=== PATIENT | female | born 1965 | race Caucasian/White ===

== ENCOUNTER 2018-10-11 11:21 | Day surgery (SDC) | payer OTHER ==
[2018-10-11] MEDS ORDERED: LIDOCAINE 4% SOLUTION 50 ML BTL (12:51)
[2018-10-11] MEDS ORDERED: MIDAZOLAM 1 MG/ML 2 ML INJ ×2 (14:06→14:07)
[2018-10-11] MEDS ORDERED: FENTAnyl 50 MCG/ML VIAL (14:38)
== END 2018-10-11 14:57 | disposition home or self-care (01) ==
LOC: GIL 11:21
DX: R19.5 Other fecal abnormalities (principal); K29.40 Chronic atrophic gastritis without bleeding; K20.9 Esophagitis, unspecified; E11.9 Type 2 diabetes mellitus without complications; I10 Essential (primary) hypertension
CPT/HCPCS: 43239; 82962; 88305

== ENCOUNTER 2019-02-26 11:53 | Emergency (ER) | payer OTHER ==
[2019-02-26] MEDS: CYCLOBENZAPRINE 10 MG TAB PO (13:19)
[2019-02-26] MEDS: KETOROLAC 30 MG INJ IM (13:20)
== END 2019-02-26 14:59 | disposition home or self-care (01) ==
LOC: FTE 11:53
DX: M54.5 Low back pain (principal); M62.830 Muscle spasm of back; I10 Essential (primary) hypertension; E11.9 Type 2 diabetes mellitus without complications; W18.39XA Other fall on same level, initial encounter; Y92.9 Unspecified place or not applicable; Z79.4 Long term (current) use of insulin
CPT/HCPCS: 72020; 81025; 96372; 99284-25